=== PATIENT | female | born 1950 | race Caucasian/White ===

== ENCOUNTER → 2023-04-01 | Outpatient (CLI) | payer MEDICARE, BC ==
[~2023-04-01] MED LIST: AMBIEN 5MG TABLE5 MG PO; MOTRIN 600600 MG/TAB PO; NATURE'S BLE1000 MCG PO; NORCO 325 MG-101 TAB PO; NORCO 325 MG-51 TAB PO; NORVASC 5MG5 MG/TAB PO; PRINIVIL20 MG PO; QUALITY CHOI500 U/GM TOP; TUMS EXTRA STR750 MG PO; ULTRAM 50MG TAB50 MG PO; VITAMINC1000TA PO; ZANAFLEX2 MG PO
== END ==
LOC: COL.RAD 10:01
DX: M65.811 Other synovitis and tenosynovitis, right shoulder (principal); M25.411 Effusion, right shoulder; M75.81 Other shoulder lesions, right shoulder; S46.011A Strain of muscle(s) and tendon(s) of the rotator cuff of right shoulder, initial encounter